=== PATIENT | male | born 1960 ===

== ENCOUNTER 2018-03-02 08:06 | Emergency (ER) | payer OTHER ==
[~2018-03-02] VITALS: Ht 175.3 cm; Wt 86.2 kg
[2018-03-02] MEDS ORDERED: HYZAAR 100-251 EACH (08:18)
[2018-03-02] MEDS ORDERED: PERCOCET 5-3251 EACH PO (14:39)
[2018-03-02] MEDS ORDERED: IBUPROFEN600 MG PO (14:39)
== END 2018-03-02 15:02 | disposition home or self-care (01) ==
LOC: ER 08:06
DX: S20.212A Contusion of left front wall of thorax, initial encounter (principal); S30.1XXA Contusion of abdominal wall, initial encounter; W18.39XA Other fall on same level, initial encounter; Y93.89 Activity, other specified; Y92.814 Boat as the place of occurrence of the external cause; Y99.8 Other external cause status